=== PATIENT | male | born 1940 | race Caucasian/White ===

== ENCOUNTER → 2016-05-20 | Outpatient (CLI) | payer OTHER ==
[2016-05-20 14:15] LABS: BASO # 0.1 K/mm3 (0.0-0.2); BASO % 0.5 % (0.0-1.0); EOS # 0.7 K/mm3 (0.0-0.50); EOS % 4.5 % (0.0-3.0); LYMPH # 9.1 K/mm3 (1.5-4.5); LYMPH % 61.7 % (24.0-44.0); MEAN CORPUSCULAR HEMOGLOBIN 29.5 pg (27.0-33.0); MEAN CORPUSCULAR HGB CONC 32.4 g/dl (32.0-36.5); MEAN CORPUSCULAR VOLUME 91.1 fl (80.0-96.0); MONO # 0.6 K/mm3 (0.0-0.8); MONO % 4.1 % (0.0-5.0); NEUTROPHILS # 3.6 K/mm3 (1.8-7.7); NEUTROPHILS % 24.1 % (36.0-66.0); RED CELL DISTRIBUTION WIDTH 12.9 % (11.5-14.5)
[2016-05-20 14:18] LABS: WHITE BLOOD COUNT 14.8 K/mm3 (4.0-10.0)
[2016-05-20 14:24] LABS: IMMUNOGLOBULIN G 1080 MG/DL (681-1648); IMMUNOGLOBULIN M 62.1 MG/DL (40-230)
[2016-05-20 14:53] LABS: IMMUNOGLOBULIN E < 3.6 IU/ML (<100)
[2016-05-24 00:06] LABS: ANTI TETANUS ANTIBODY 0.39 IU/mL (<0.10); AUREOBASIDIUM PULLULANS Negative (Negative); IMMUNOGLOBULIN D 0.23 mg/dL (<14.11); MICROPOLYSPORA FAENI AB Negative (Negative); PIGEON SERUM AB Negative (Negative); STREP PNEUMO TYPE 12F <0.3 ug/mL (>1.3); STREP PNEUMO TYPE 18C <0.3 ug/mL (>1.3); STREP PNEUMO TYPE 19F 1.4 ug/mL (>1.3); STREP PNEUMO TYPE 23F <0.3 ug/mL (>1.3); STREP PNEUMO TYPE 6B 1.2 ug/mL (>1.3); STREP PNEUMO TYPE 7F <0.3 ug/mL (>1.3); STREP PNEUMO TYPE 9N 0.8 ug/mL (>1.3); STREP PNEUMO TYPE 9V 0.6 ug/mL (>1.3); THERMOACTINOMYCES SACCHARI Negative (Negative); THERMOACTINOMYCES VULGARIS Negative (Negative)
== END | disposition home or self-care (01) ==
LOC: M SMT 11:17
PROVIDERS: ATTEND Allergy & Immunology Allergy
DX: Z01.82 Encounter for allergy testing (principal); T78.40XA Allergy, unspecified, initial encounter

== ENCOUNTER → 2020-07-05 | Outpatient (REF) | payer MEDICARE | LOC: M LAB REF 13:54 | PROVIDERS: ATTEND Dermatology | DX: C44.42 Squamous cell carcinoma of skin of scalp and neck (principal) ==

== ENCOUNTER → 2020-07-11 | Outpatient (CLI) | payer MEDICARE | LOC: M RAD 16:17 | PROVIDERS: ATTEND Dermatology | DX: T14.90XD Injury, unspecified, subsequent encounter (principal) ==